=== PATIENT | female | born 1945 | race Two or more races ===

== ENCOUNTER 2018-08-30 14:24 | Emergency (ER) | payer OTHER ==
[~2018-08-30] VITALS: Ht 170.2 cm; Wt 106.1 kg
[~2018-08-30 14:24] MED LIST: ASA81 MG PO; ATACAND16 MG PO; CARDURA8 MG; CELEBREX50 MG PO; COZAAR100 MG; DICY10CA; FENOFIBRATE40 MG; FLORA-Q 2 CAPSU1 CAP; IBERSANTAN; LEVSIN0.125 MG; NABUMETONE750 MG PO; NEURONTIN300 MG; PREVACID30 MG; PRILOSEC10 MG; SENOKOT TAB1 TAB PO; SINGULAIR10 MG; TENORMIN25 MG PO; ZOCOR20 MG PO; ZYRTEC5 MG
== END 2018-08-30 19:45 | disposition home or self-care (01) ==
LOC: ER 14:24
DX: M62.830 Muscle spasm of back (principal); J32.8 Other chronic sinusitis

== ENCOUNTER 2018-12-13 13:00 | Emergency (ER) | payer OTHER ==
[~2018-12-13] VITALS: Ht 170.2 cm; Wt 105.2 kg
[2018-12-13] MEDS ORDERED: LISINOPRIL10 MG (13:32)
== END 2018-12-13 18:13 | disposition home or self-care (01) ==
LOC: ER 13:00
DX: G89.11 Acute pain due to trauma (principal); M25.512 Pain in left shoulder; M25.511 Pain in right shoulder; M54.89 Other dorsalgia; R42 Dizziness and giddiness

== ENCOUNTER 2019-01-06 20:06 | Emergency (ER) | payer OTHER ==
[~2019-01-06] VITALS: Ht 170.2 cm; Wt 105.2 kg
[~2019-01-06 20:06] MED LIST changes: +LISINOPRIL10 MG
[2019-01-06] MEDS ORDERED: VASOFLEX TABLE1 EACH (21:57)
[2019-01-06] MEDS ORDERED: DICY20TA (21:57)
[2019-01-06] MEDS ORDERED: SINGULAIR 10MG10 MG (21:58)
== END 2019-01-07 06:21 | disposition home or self-care (01) ==
LOC: ER 20:06
DX: R10.32 Left lower quadrant pain (principal)

== ENCOUNTER 2019-12-31 08:23 | Emergency (ER) | payer OTHER ==
[~2019-12-31] VITALS: Ht 172.7 cm; Wt 99.8 kg
[~2019-12-31 08:23] MED LIST changes: +DICY20TA; +SINGULAIR 10MG10 MG; +VASOFLEX TABLE1 EACH
[2019-12-31] MEDS ORDERED: SUPER B-50 COM1 EACH PO (08:35)
[2019-12-31] MEDS ORDERED: DELSYM30 MG/5 M1 (08:55)
[2019-12-31] MEDS ORDERED: BREO ELLIPTA I1 EACH IH (08:55)
[2019-12-31] MEDS ORDERED: TYLENOL ARTHRI650 MG (08:56)
[2019-12-31] MEDS ORDERED: VITAMIN C500 M1 PO (08:56)
[2019-12-31] MEDS ORDERED: FLONASE16 GM NS (08:57)
[2019-12-31] MEDS ORDERED: GLUCERNA237 M1 PO (08:57)
== END 2019-12-31 11:34 | disposition home or self-care (01) ==
LOC: ER 08:23
DX: R42 Dizziness and giddiness (principal); J32.0 Chronic maxillary sinusitis; M54.2 Cervicalgia; Z03.818 Encounter for observation for suspected exposure to other biological agents ruled out

== ENCOUNTER 2021-08-31 12:59 | Emergency (ER) | payer OTHER ==
[~2021-08-31] VITALS: Ht 172.7 cm; Wt 99.8 kg
[~2021-08-31 12:59] MED LIST changes: +BREO ELLIPTA I1 EACH IH; +DELSYM30 MG/5 M1; +FLONASE16 GM NS; +GLUCERNA237 M1 PO; +SUPER B-50 COM1 EACH PO; +TYLENOL ARTHRI650 MG; +VITAMIN C500 M1 PO
[2021-08-31] MEDS ORDERED: LIPITOR20 MG PO (13:36)
== END 2021-08-31 14:52 | disposition home or self-care (01) ==
LOC: ER 12:59
DX: S89.81XA Other specified injuries of right lower leg, initial encounter (principal); W18.30XA Fall on same level, unspecified, initial encounter; Y92.019 Unspecified place in single-family (private) house as the place of occurrence of the external cause; M54.59 Other low back pain; M12.561 Traumatic arthropathy, right knee

== ENCOUNTER 2022-03-16 13:20 | Emergency (ER) | payer OTHER ==
[~2022-03-16] VITALS: Ht 152.4 cm; Wt 106.1 kg
[~2022-03-16 13:20] MED LIST changes: +LIPITOR20 MG PO
[2022-03-16] MEDS ORDERED: ZESTRIL20 MG PO (13:34)
[2022-03-16] MEDS ORDERED: PEPCID AC20 MG PO (13:40)
[2022-03-16] MEDS ORDERED: CIPRO250 MG PO (18:28)
== END 2022-03-16 18:51 | disposition home or self-care (01) ==
LOC: ER 13:20
DX: R53.81 Other malaise (principal); I10 Essential (primary) hypertension; K58.9 Irritable bowel syndrome, unspecified; K57.90 Diverticulosis of intestine, part unspecified, without perforation or abscess without bleeding; Z95.0 Presence of cardiac pacemaker; J45.909 Unspecified asthma, uncomplicated; Z20.822 Contact with and (suspected) exposure to COVID-19